=== PATIENT | female | born 1965 | race Caucasian/White ===

== ENCOUNTER 2025-02-02 07:41 | Emergency (ER) | payer OTHER, SELFPAY ==
[2025-02-02 07:43] VITALS: BP 146/96
--- NOTE | 2025-02-02 08:17 | ED.GENMED ---
History of Present Illness
General
Chief Complaint: Musculo-Skeletal Complaint
Source: patient
Exam Limitations: none
Time Seen by Provider: 02/02/25 07:58
History of Present Illness
History of Present Illness:
59yo right hand dominant female with a remote history of breast cancer in 2014 s/p double mastectomy presenting with her son for evaluation of right shoulder/arm pain. She initially had some mild discomfort in her neck this past weekend which she
thought may be related to her pillow. She then started to have localized pain in the right shoulder/scapular region about 4-5 days ago. Pain started to radiate to her upper arm a few days later. The pain radiates to the level of the elbow. She
states she is unable to get in a comfortable position. She has tried heat, Aspercreme, massage, and ibuprofen without much relief. Pain is worse with movement of the right shoulder. She denies any specific trauma. She was doing bicep curls and
push-ups the day before her symptoms started. She also throws the ball to her dog for about 20 minutes twice daily. She denies any fevers, chest pain, shortness of breath, paresthesias.
Phy Exam
General Physical Exam
General Presentation: well appearing and no apparent distress
General age: appears stated age
General Skin: warm and dry
General Habitus: normal
General Mental: alert
ENT Exam
ENT Exam: normocephalic
Cardiovascular Exam
Cardiovascular Exam: regular rate/rhythm and no murmur
Pulmonary Exam
Pulmonary Exam: lungs clear, no respiratory distress, no rales, no crackles and no rhonchi
Neurological Exam
Neurological Exam: alert
Musculoskeletal Exam
Musculoskeletal Exam: other (There is reproducible tenderness to the musculature medial to the R scapula. ROM of R shoulder is mildly decreased and elicits pain. No deformity or skin changes. 2+ radial pulse and sensation intact. )
Skin Exam
Skin Exam: normal color and warm/dry
Psychiatric Exam
Psychiatric Exam: normal mood/affect
Course
Orders/Labs/Results
Orders:
Orders
02/02/25 08:16
Acetaminophen [Tylenol] 1,000 mg PO NOW STA
Ketorolac [Toradol] 30 mg IM NOW STA
CR Shoulder - Right Min 2 View Urgent
Comment:
Reason For Exam: pain
02/02/25 08:30
Lidocaine [Lidocaine 4% Patch] 1 patch TOPICAL DAILY
Apply Lidocaine patch(s) to:: R scapular area
02/02/25 09:06
Diazepam [Valium] 5 mg PO NOW STA
Vital Signs
Initial and Last Documented VS:
Initial Vital Signs
Temp Pulse Resp BP Pulse Ox
98.0 F 71 16 146/96 100
02/02/25 07:43 02/02/25 07:43 02/02/25 07:43 02/02/25 07:43 02/02/25 07:43
Last Documented Vital Signs
Temp Pulse Resp BP Pulse Ox
98.2 F 78 16 136/84 99
02/02/25 09:43 02/02/25 09:43 02/02/25 09:43 02/02/25 09:43 02/02/25 09:43
MDM/Problems Addressed
Differential Diagnosis Includes:
59yoF here with R shoulder/arm pain x 4-5 days. Denies any specific trauma. Pain worse with movement. Using OTC medications without relief. Denies CP/SOB or paresthesias. She is mildly hypertensive with otherwise normal vitals. She is non-toxic
appearing. There is reproducible tenderness to the musculature of the R scapular region. RUE is neurovascularly intact. Differential diagnosis includes but is not limited to: muscular strain, cervical radiculopathy, rotator cuff pathology, calcific
tendonitis
Initial ED plan: Check R shoulder x-rays. IM Toradol, Tylenol, Valium, and lidocaine patch for pain.
*Critical Care Note
Total Time (30-74mins, 75-104mins- exclusive of procedures): Not Applicable
Update Note
Update Note:
X-rays are negative for acute osseous abnormalities. Suspect muscular pain given that it is reproducible on exam. Will trial course of prednisone. Prescription also given for Valium for severe pain/spasms. She was advised to f/u with her PCP and
orthopedics. ED return precautions discussed. Patient discharged in stable condition and ambulated with a steady gait out of department.
ED Attending Note
-
Portions of this chart may have been created with voice recognition software.� Occasional wrong word or��sound alike� substitutions may have occurred due to the inherent limitations of voice recognition software.
Discharge Plan
Departure
Patient Disposition: Home (Routine Discharge)
Date of Disposition: 02/02/25
Time of Disposition: :
Patient with high blood pressure during this ER visit?: Yes
Discharge Problem:
Acute pain of right shoulder
Instructions: Muscle and Bone Pain (DC)
Prescriptions:
New
prednisone 20 mg tablet
40 mg PO DAILY 5 Days Qty: 10 0RF
diazepam [Valium] 5 mg tablet
5 mg PO TID PRN (Reason: muscle spasm) Qty: 9 0RF
Referrals:
Bianca Tomlinson MD [Family Provider] -
Brady Payton MD [Active] -
Activity Restrictions/Additional Instructions:
Take prednisone as prescribed. Continue taking ibuprofen as needed. You may also take Tylenol 650mg every 6 hours as needed. Use lidocaine patches daily (12 hours on, 12 hours off).
Take Valium (muscle relaxer) only as needed for severe spasms. Do not drive while taking this or take with alcohol.
Please call today to schedule a follow-up appointment with orthopedics and your family doctor. Return to the ER with any new or worsening symptoms.
Interventions
Interventions:
*Nursing Disposition Last Done: 02/02/25 09:43
ED-Musculoskeletal Assessment Last Done: 02/02/25 09:41
Discharge Date and Time
Discharge Date/Time: 02/02/25 09:45
Print Language: WELSH
[2025-02-02] MEDS: TORADOL 30 MG IM (09:32)
[2025-02-02] MEDS: LIDOCAINE 4% PATCH 1 PATCH TOPICAL (09:33)
[2025-02-02] MEDS: TYLENOL 1000 MG PO (09:33)
[2025-02-02] MEDS: VALIUM 5 MG PO (09:33)
[2025-02-02 09:43] VITALS: BP 136/84
== END 2025-02-02 09:45 | disposition home or self-care (01) ==
LOC: EMR 07:41
PROVIDERS: EMERGENCY PHYSICIAN Emergency Medicine; FAMILY PHYSICIAN Internal Medicine
DX: M25.511 Pain in right shoulder (principal); Z85.3 Personal history of malignant neoplasm of breast; Z90.13 Acquired absence of bilateral breasts and nipples
CPT/HCPCS: 96372; 99284; 73030